=== PATIENT | male | born 1960 | race Caucasian/White ===

== ENCOUNTER → 2023-10-13 | Day surgery (SDC) | payer OTHER ==
[~2023-10-13] MED LIST: Acetaminophen 325 MG Tab PO SCH; Lactated Ringers 1,000 ML IV SCH; Morphine 8 MG, EPINEPHrine 0.3 MG, Cefuroxime 750 MG, Ketorolac 30 MG, Sodium Chloride ... PRN; Pregabalin 25 MG Cap PO SCH; Sodium Chloride 0.9% 10 ML Syringe FLUSH PRN; Sodium Chloride 0.9% 10 ML Syringe FLUSH SCH; Tranexamic Acid 1,000 MG/10 ML Vial ONE; Vancomycin 1 GM SDV ONE; oxyCODONE ER 10 MG TAB.ER PO SCH
[2023-10-13 07:57] LABS: BARBITURATE SCREEN,URINE NEGATIVE (CUTOFF=200); BENZODIAZEPINES SCREEN,URINE NEGATIVE (CUTOFF=150); BUPRENORPHINE SCREEN,URINE NEGATIVE (CUTOFF=10); METHADONE SCREEN, URINE NEGATIVE (CUT0FF=200); METHAMPHETAMINES SCREEN, URINE PRESUMPTIVE POSITIVE (CUTOFF=500); OXYCODONE SCREEN,URINE NEGATIVE (CUT0FF=100); THC SCREEN,URINE 20 NG/ML PRESUMPTIVE POSITIVE (CUTOFF=50)
[2023-10-13 07:58] LABS: AMPHETAMINES SCREEN, URINE PRESUMPTIVE POSITIVE (CUTOFF=500)
== END | disposition home or self-care (01) ==
LOC: JD.SDS 07:45
PROVIDERS: ATTEND Orthopaedic Surgery
DX: M16.11 Unilateral primary osteoarthritis, right hip (principal); Z53.8 Procedure and treatment not carried out for other reasons
CPT/HCPCS: 80306; J3370; J3490

== ENCOUNTER 2023-10-27 08:45 | Day surgery (SDC) | payer OTHER ==
[~2023-10-27 08:45] MED LIST changes: -Acetaminophen 325 MG Tab PO SCH; -Lactated Ringers 1,000 ML IV SCH; -Morphine 8 MG, EPINEPHrine 0.3 MG, Cefuroxime 750 MG, Ketorolac 30 MG, Sodium Chloride ... PRN; -Pregabalin 25 MG Cap PO SCH; -Tranexamic Acid 1,000 MG/10 ML Vial ONE; -Vancomycin 1 GM SDV ONE; -oxyCODONE ER 10 MG TAB.ER PO SCH
[2023-10-27 09:13] LABS: AMPHETAMINES SCREEN, URINE NEGATIVE (CUTOFF=500); BARBITURATE SCREEN,URINE NEGATIVE (CUTOFF=200); BENZODIAZEPINES SCREEN,URINE NEGATIVE (CUTOFF=150); BUPRENORPHINE SCREEN,URINE NEGATIVE (CUTOFF=10); METHADONE SCREEN, URINE NEGATIVE (CUT0FF=200); METHAMPHETAMINES SCREEN, URINE NEGATIVE (CUTOFF=500); OXYCODONE SCREEN,URINE NEGATIVE (CUT0FF=100); THC SCREEN,URINE 20 NG/ML NEGATIVE (CUTOFF=50)
[2023-10-27] MEDS ORDERED: HYDROmorphone 0.5 MG/0.5 ML Syringe IVPUSH PRN (09:15)
[2023-10-27] MEDS ORDERED: fentaNYL 100 MCG/2 ML SDV IVPUSH PRN (09:15)
[2023-10-27] MEDS ORDERED: Ondansetron 4 MG/2 ML SDV IVPUSH PRN (09:15)
[2023-10-27] MEDS ORDERED: Sodium Chloride 0.9% 10 ML Syringe FLUSH PRN (09:16)
[2023-10-27] MEDS: Lactated Ringers 1,000 ML IV SCH (09:18)
[2023-10-27] MEDS ORDERED: Lactated Ringers 1,000 ML IV SCH (09:30)
[2023-10-27] MEDS: oxyCODONE ER 10 MG TAB.ER PO SCH (09:31)
[2023-10-27] MEDS: Pregabalin 25 MG Cap PO SCH (09:31)
[2023-10-27] MEDS: Acetaminophen 325 MG Tab PO SCH (09:31)
[2023-10-27] MEDS ORDERED: Bupivacaine 0.5% 10 ML SDV ONE (10:15)
[2023-10-27] MEDS ORDERED: oxyCODONE 5 MG Tab PO PRN (10:52)
[2023-10-27] MEDS ORDERED: Midazolam 1 MG/ML 2 ML SDV ONE (10:54)
[2023-10-27] MEDS ORDERED: Propofol 200 MG/20 ML SDV ONE ×2 (10:55→12:17)
[2023-10-27] MEDS ORDERED: fentaNYL 100 MCG/2 ML SDV ONE (10:55)
[2023-10-27] MEDS ORDERED: ceFAZolin 2 GM Vial ONE (11:25)
[2023-10-27] MEDS ORDERED: Lidocaine 1% 5 ML VIAL ONE (11:47)
[2023-10-27] MEDS ORDERED: Lactated Ringers 1,000 ML IV ONE (12:30)
[2023-10-27] MEDS: Morphine 8 MG, EPINEPHrine 0.3 MG, Cefuroxime 750 MG, Ketorolac 30 MG, Sodium Chloride ... PRN (12:45)
[2023-10-27] MEDS: Vancomycin 1 GM SDV ONE (12:46)
[2023-10-27] MEDS: Tranexamic Acid 1,000 MG/10 ML Vial ONE (12:46)
[2023-10-27] MEDS ORDERED: ePHEDrine 50 MG/ML SDV ONE (12:46)
[2023-10-27] MEDS: oxyCODONE 5 MG Tab PO PRN (15:17)
[2023-10-27] MEDS ORDERED: Sodium Chloride 0.9% 10 ML Syringe FLUSH SCH (21:00)
== END 2023-10-27 16:05 | disposition home or self-care (01) ==
LOC: JD.SDS 08:45
PROVIDERS: ATTEND Orthopaedic Surgery
DX: M16.11 Unilateral primary osteoarthritis, right hip (principal); J44.9 Chronic obstructive pulmonary disease, unspecified; F17.210 Nicotine dependence, cigarettes, uncomplicated; R07.9 Chest pain, unspecified; D64.9 Anemia, unspecified; I10 Essential (primary) hypertension; M19.011 Primary osteoarthritis, right shoulder; D75.839 Thrombocytosis, unspecified; R63.4 Abnormal weight loss; C61 Malignant neoplasm of prostate; I87.2 Venous insufficiency (chronic) (peripheral); M10.9 Gout, unspecified; G62.9 Polyneuropathy, unspecified; R73.02 Impaired glucose tolerance (oral); Z79.51 Long term (current) use of inhaled steroids; Z79.899 Other long term (current) drug therapy
CPT/HCPCS: 0055T; 27130; 36415; 73501; 80306; 86850; 86900; 86901; 97110; 97161; A9270; C1713; C1776; J0171; J0665; J0690; J0697; J1885; J2250; J2270; J2704; J3010; J3370; J7120; 01214; J3490